=== PATIENT | male | born 1955 | race African-American/Black ===

== ENCOUNTER 2018-02-27 07:43 | Emergency (ER) | payer OTHER ==
[~2018-02-27] VITALS: Ht 180.3 cm; Wt 82.7 kg
[~2018-02-27 07:43] MED LIST: HYDROCODON-ACE1 EAC7 PO
[2018-02-27 10:44] LABS: HEMATOCRIT 42.2 % (38.0-50.0); HEMOGLOBIN 13.9 G/DL (12.5-16.6); MCH 27.5 PG (29.0-34.0); MCHC 32.9 G/DL (30.0-36.0); MCV 83.6 FL (86-99); PLATELET COUNT 406 K/uL (156-360); RBC DIS.WIDTH-CV 13.3 % (11.8-14.6); RED BLOOD COUNT 5.05 M/uL (4.00-5.50); WHITE BLOOD COUNT 8.2 K/uL (4.1-10.2)
[2018-02-27 10:59] LABS: CHLORIDE 102 mEq/L (99-109); POTASSIUM 3.9 mEq/L (3.7-5.4); SODIUM 139 mEq/L (136-147)
[2018-02-27 11:00] LABS: GLUCOSE 103 mg/dL (70-99)
[2018-02-27 11:04] LABS: CREATININE 1.3 mg/dL (0.6-1.3); GFR ESTIMATE (CALCULATED) > 59 mL/min/ (58.99-99999)
[2018-02-27 11:05] LABS: UREA NITROGEN (BUN) 20 mg/dL (9-23)
[2018-02-27] MEDS ORDERED: KEFLEX500 MG PO (12:01)
[2018-02-27 12:07] VITALS: BP 151/103
== END 2018-02-27 12:08 | disposition home or self-care (01) ==
LOC: EME 07:43
PROVIDERS: Nurse Practitioner Family
DX: L03.211 Cellulitis of face (principal); I10 Essential (primary) hypertension; B20 Human immunodeficiency virus [HIV] disease
CPT/HCPCS: 70487; 80048; 85027; 99281; 99283; J7030